=== PATIENT | male | born 1970 | race Caucasian/White ===

== ENCOUNTER 2021-06-21 14:34 | Emergency (ER) | payer BC, OTHER ==
[~2021-06-21] VITALS: Ht 177.8 cm; Wt 83.9 kg
[2021-06-21] MEDS ORDERED: Morphine 2mg Syringe 2 MG/ML SYR IM ONE (15:10)
[2021-06-21] MEDS ORDERED: HYDROCODON-ACE1 EA11 PO (16:43)
[2021-06-21 17:44] VITALS: BP 129/76
[2021-06-26] MEDS ORDERED: TYLENOL325 MG PO (11:32)
== END 2021-06-21 17:15 | disposition home or self-care (01) ==
LOC: ER 14:41
DX: S52.591A Other fractures of lower end of right radius, initial encounter for closed fracture (principal); S52.611A Displaced fracture of right ulna styloid process, initial encounter for closed fracture; S22.050A Wedge compression fracture of T5-T6 vertebra, initial encounter for closed fracture; S22.060A Wedge compression fracture of T7-T8 vertebra, initial encounter for closed fracture; V27.4XXA Motorcycle driver injured in collision with fixed or stationary object in traffic accident, initial encounter; Y92.481 Parking lot as the place of occurrence of the external cause
CPT/HCPCS: 29125; 72072; 73110; 99283; J2270

== ENCOUNTER → 2021-06-30 | Day surgery (SDC) | payer BC, OTHER ==
[~2021-06-30] MED LIST: BUPIVACAINE HCL 0.5% INJ 30 ML VIAL INJ ONE; DEXAMETHASONE SOD PHOS INJ 4 MG/ML SDV ONE; FENTANYL CITRATE/PF 100MCG/2 ML INJ ONE; HYDROCODON-ACE1 EA11 PO; HYDROCODONE/APAP 7.5MG-325MG 1 EA TAB ONE; KETOROLAC TROMETHAMINE 30 MG/ML VIAL ONE; LIDOCAINE HCL 2% LOCAL INJ 5 ML SDV VIAL INJ ONE; MIDAZOLAM HCL 2 MG/2 ML VIAL ONE; ONDANSETRON HCL INJ 2MG/ML 2ML 2 MG/ML VIAL ONE; POVIDONE IODINE 0.05% 0.05 % ML PO ONE; PROPOFOL IV EMULSION 10 MG/ML 20 ML VIAL ONE; SEVOFLURANE INHAL SOLN 250 ML PEN BTL ONE; SODIUM CHLORIDE 0.9% 50ML 50 ML ONE; TYLENOL325 MG PO
[2021-06-30 14:41] VITALS: BP 142/90
== END | disposition home or self-care (01) ==
LOC: OR 10:37
PROVIDERS: ATTEND Specialist
DX: S52.531A Colles' fracture of right radius, initial encounter for closed fracture (principal); S52.611A Displaced fracture of right ulna styloid process, initial encounter for closed fracture; V29.88XA Motorcycle rider (driver) (passenger) injured in other specified transport accidents, initial encounter; Y93.89 Activity, other specified; Y99.8 Other external cause status; Z88.0 Allergy status to penicillin; Z01.810 Encounter for preprocedural cardiovascular examination; Z01.812 Encounter for preprocedural laboratory examination; Z20.822 Contact with and (suspected) exposure to COVID-19
CPT/HCPCS: 25607; 76000; 93005; C1713 ×4; J0690; J1100; J1885; J2001; J2250; J2405; J2704; J3010; U0002